=== PATIENT | male | born 1955 | race African-American/Black ===

== ENCOUNTER 2017-06-16 11:12 | Emergency (ER) | payer SELFPAY ==
[~2017-06-16] VITALS: Ht 177.8 cm; Wt 80.0 kg
[2017-06-16 13:35] VITALS: BP 111/52
== END 2017-06-16 13:36 | disposition home or self-care (01) ==
LOC: ER 11:12
DX: R45.1 Restlessness and agitation (principal); Z86.73 Personal history of transient ischemic attack (TIA), and cerebral infarction without residual deficits
CPT/HCPCS: 99283

== ENCOUNTER 2017-06-16 16:54 | Emergency (ER) | payer OTHER ==
[~2017-06-16] VITALS: Ht 182.9 cm; Wt 69.0 kg
[2017-06-16 22:08] LABS: *AMPHETAMINES SCREEN URINE NEGATIVE (NEGATIVE); *BARBITURATES SCREEN URINE NEGATIVE (NEGATIVE); *BENZODIAZEPINES SCREEN URINE NEGATIVE (NEGATIVE); *COCAINE SCREEN URINE NEGATIVE (NEGATIVE); METHADONE URINE SCREEN NEGATIVE (NEGATIVE)
[2017-06-16 22:09] LABS: CANNABINOID URINE SCREEN NEGATIVE (NEGATIVE); OPIATES URINE SCREEN NEGATIVE (NEGATIVE); PHENCYCLIDINE URINE SCREEN NEGATIVE (NEGATIVE)
[2017-06-17 01:05] LABS: BASOPHILS % 1.1 % (0.0-2.0); EOSINOPHILS % 3.3 % (0.0-5.0); HEMATOCRIT. 40.1 % (42.0-52.0); HEMOGLOBIN. 13.2 g/dL (14.0-18.0); LYMPHOCYTES % 34.4 % (20.0-50.0); MEAN CORPUSCULAR HEMOGLOBIN 30.2 pg (28.0-32.0); MEAN CORPUSCULAR VOLUME 91.7 fL (80.0-94.0); MEAN PLATELET VOLUME 7.2 fl (7.4-10.4); MONOCYTES % 9.3 % (2.0-8.0); NEUTROPHILS % 51.9 % (40.0-76.0); PLATELET 255 x1000/uL (130-400); RED BLOOD CELL COUNT 4.38 mill/uL (4.7-6.1); RED CELL DISTRIBUTION WIDTH 13.7 % (11.6-14.6)
[2017-06-17 01:08] LABS: CHLORIDE 106 mEq/L (98-107)
[2017-06-17 01:13] LABS: ETHANOL BLOOD < 10 mg/dL
[2017-06-17 12:48] VITALS: BP 130/72
== END 2017-06-17 12:49 | disposition home or self-care (01) ==
LOC: ER 17:18
DX: R45.851 Suicidal ideations (principal); Z86.73 Personal history of transient ischemic attack (TIA), and cerebral infarction without residual deficits
CPT/HCPCS: 36415; 80053; 80305; 80307; 80329; 85025; 99284; G0482; Z7610

== ENCOUNTER 2017-07-30 14:30 | Inpatient (IN) | payer OTHER ==
[~2017-07-30] VITALS: Ht 182.9 cm; Wt 74.4 kg
[2017-07-30] MEDS ORDERED: HALOPERIDOL LACTATE 5MG/ML VIAL IM ONE ×2 (15:00→23:15)
[2017-07-30 15:43] LABS: CHLORIDE 103 mEq/L (98-107)
[2017-07-30 15:44] LABS: INR 1.1; PROTHROMBIN TIME 11.8 sec (9.4-11.6)
[2017-07-30 15:47] LABS: BASOPHILS % 0.7 % (0.0-2.0); EOSINOPHILS % 0.6 % (0.0-5.0); HEMATOCRIT. 40.1 % (42.0-52.0); HEMOGLOBIN. 13.5 g/dL (14.0-18.0); LYMPHOCYTES % 36.6 % (20.0-50.0); MEAN CORPUSCULAR HEMOGLOBIN 29.7 pg (28.0-32.0); MEAN CORPUSCULAR VOLUME 88.3 fL (80.0-94.0); MEAN PLATELET VOLUME 7.6 fl (7.4-10.4); MONOCYTES % 9.2 % (2.0-8.0); NEUTROPHILS % 52.9 % (40.0-76.0); PLATELET 341 x1000/uL (130-400); RED BLOOD CELL COUNT 4.54 mill/uL (4.7-6.1); RED CELL DISTRIBUTION WIDTH 13.5 % (11.6-14.6)
[2017-07-30 15:50] LABS: ETHANOL BLOOD < 10 mg/dL
[2017-07-30 15:57] LABS: CLARITY URINE CLEAR (CLEAR); COLOR URINE YELLOW (YELLOW); KETONES URINE NEGATIVE (NEGATIVE); LEUKOCYTE ESTERASE URINE NEGATIVE (NEGATIVE); NITRITE URINE NEGATIVE (NEGATIVE); OCCULT BLOOD URINE NEGATIVE (NEGATIVE); PROTEIN URINE NEGATIVE (NEGATIVE); UROBILINOGEN URINE 0.2 E.U./dL (0.2-1.0)
[2017-07-30 16:11] LABS: *AMPHETAMINES SCREEN URINE NEGATIVE (NEGATIVE); *BARBITURATES SCREEN URINE NEGATIVE (NEGATIVE); *BENZODIAZEPINES SCREEN URINE NEGATIVE (NEGATIVE)
[2017-07-30 16:12] LABS: *COCAINE SCREEN URINE NEGATIVE (NEGATIVE); METHADONE URINE SCREEN NEGATIVE (NEGATIVE); OPIATES URINE SCREEN NEGATIVE (NEGATIVE); PHENCYCLIDINE URINE SCREEN NEGATIVE (NEGATIVE)
[2017-07-30 16:13] LABS: CANNABINOID URINE SCREEN NEGATIVE (NEGATIVE)
[2017-07-30] MEDS ORDERED: LORAZEPAM 2MG/ML CPJ IM STA (23:02)
[2017-07-30] MEDS ORDERED: DIPHENHYDRAMINE 50MG/ML VIAL IM STA (23:02)
[2017-07-31] VITALS (9 sets, daily range): BP systolic 117–127; BP diastolic 57–88
[2017-07-31 03:01] LABS: BG BASE EXCESS 1.9 mmol/L (-2.0-2.0); BG CARBOXYHEMOGLOBIN 0.1 % (0.5-1.5); BG DEOXYHEMOGLOBIN 6.7 % (0.0-5.0); BG FRACTION INSPIRED OXYGEN 21; BG HCO3 ACT 25.9 mmol/L (22.0-26.0); BG METHEMOGLOBIN 0.2 % (0.0-1.5); BG OXYGEN SATURATION 93.3 % (92.0-98.5); BG PCO2 38.5 mmHg (35.0-45.0); BG PH 7.446 (7.350-7.450); BG PO2 70.5 mmHg (75.0-100.0); BG SAMPLE SITE LEFT RADIAL; BG VENT MODE ROOM AIR
[2017-07-31] MEDS ORDERED: LORAZEPAM 2MG/ML CPJ IV PRN ×2 (03:45→11:45)
[2017-07-31] MEDS ORDERED: HYDROCODONE/ACETAMINOPHEN 10/325MG TABLET PO PRN (03:45)
[2017-07-31] MEDS: BLOOD SUGAR DIAGNOSTIC STRIP TEST SCH ×4 (06:20→22:40)
[2017-07-31] MEDS: ENOXAPARIN 40MG/0.4ML SYR SUBCUT SCH (09:00)
[2017-07-31] MEDS: PANTOPRAZOLE SODIUM 40 MG/VIAL IV SCH ×2 (09:00→10:11)
[2017-07-31] MEDS: ASPIRIN 325MG EC TABLET PO SCH (10:12)
[2017-07-31] MEDS ORDERED: HALOPERIDOL LACTATE 5MG/ML VIAL IM PRN (10:52)
[2017-07-31] MEDS: DEXT 5%/0.45% NACL 1000ML 1,000 ML IV SCH ×2 (11:15→19:15)
[2017-07-31 14:14] LABS: INR 1.1
[2017-07-31] MEDS: QUETIAPINE FUMARATE 25MG TABLET PO SCH (22:36)
[2017-08-01] VITALS (9 sets, daily range): BP systolic 93–130; BP diastolic 48–74
[2017-08-01] MEDS: DEXT 5%/0.45% NACL 1000ML 1,000 ML IV SCH ×2 (03:15→11:15)
[2017-08-01] MEDS: BLOOD SUGAR DIAGNOSTIC STRIP TEST SCH ×2 (06:39→12:30)
[2017-08-01] MEDS: PANTOPRAZOLE SODIUM 40 MG/VIAL IV SCH ×2 (08:43→08:47)
[2017-08-01] MEDS: ASPIRIN 325MG EC TABLET PO SCH (08:43)
[2017-08-01] MEDS: ENOXAPARIN 40MG/0.4ML SYR SUBCUT SCH ×3 (08:44→08:59)
[2017-08-01] MEDS: QUETIAPINE FUMARATE 25MG TABLET PO SCH (08:44)
== END 2017-08-01 16:37 | disposition short-term general hospital (02) | DRG 52 ==
LOC: ER 15:46 → 6EST 23:01 → EDBEDREQ 23:02 → ENRESERV 23:27 → 5EST 07-31 12:41
PROVIDERS: ADMIT Internal Medicine; ATTEND Internal Medicine
DX: G93.41 Metabolic encephalopathy (principal); I69.351 Hemiplegia and hemiparesis following cerebral infarction affecting right dominant side; D63.8 Anemia in other chronic diseases classified elsewhere; F29 Unspecified psychosis not due to a substance or known physiological condition
CPT/HCPCS: 36415; 36600; 70450; 80053; 80061; 80305; 81003; 82375; 82805; 82962; 84443; 85025; 85384; 85610; 96372; 99285; C9113; G0482; J1630; J1650; J2060; J3490

== ENCOUNTER 2018-11-08 13:43 | Emergency (ER) | payer OTHER ==
[~2018-11-08] VITALS: Ht 188 cm; Wt 91.0 kg
[2018-11-08 14:24] VITALS: BP 100/57
== END 2018-11-08 16:45 | disposition left against medical advice (07) ==
LOC: ER 13:43
DX: Z53.21 Procedure and treatment not carried out due to patient leaving prior to being seen by health care provider (principal)